=== PATIENT | male | born 1995 | race Caucasian/White ===

== ENCOUNTER 2017-05-02 10:10 | Emergency (ER) | payer BC ==
[~2017-05-02] VITALS: Ht 185.4 cm; Wt 72.7 kg
[2017-05-02 10:31] VITALS: BP 114/62; PULSE 78; TEMP 36.8; O2SAT 99; Ht 185.4 cm; Wt 72.7 kg
[2017-05-02] MEDS ORDERED: CEPH500C2 PO (11:07)
--- NOTE | 2017-05-02 17:09 | EMERGENCY ROOM VISIT NOTE ---
ED Visit Note First contact with patient: 10:36 CHIEF COMPLAINT: Painful mass on the right chin HISTORY OF PRESENT ILLNESS: This 21-year-old white male patient noticed a hard tender area on his right martínez 3 or 4 days ago. It was slowly getting larger, more painful and tender. No fever, chills, nausea, vomiting, or loss of appetite. He did see his PCP and was told there is nothing to drain. He was placed on Keflex. Since starting the Keflex, he states it has gotten smaller. He was using warm moist compresses on the area. Today it opened up and drained. He presents today for culture of the drainage. He has been on the antibiotics for a little over 24 hours. There was no injury to the area preceding the infection. Pain is 5/10. No prior history of similar episode. REVIEW OF SYSTEMS: REVIEW OF SYSTEM: HEENT: No dizziness, visual problems, hearing loss, or tinnitus. There is no difficulty swallowing and no oral lesions are present. PULMONARY: No cough, shortness of breath, sputum production or hemoptysis. CARDIOVASCULAR: No chest pain, palpitations, shortness of breath or peripheral edema. GASTROINTESTINAL: No diarrhea, constipation, nausea, vomiting, or abdominal pain. GENITOURINARY: No dysuria, frequency, urgency or nocturia. NEUROLOGIC: No weakness, muscle tenderness, epilepsy or history of neurological problems. MUSCULOSKELETAL: No history of joint tenderness/swelling. No history of arthritis or arthralgias. SKIN: No rashes. ENDOCRINE: No history of diabetes, thyroid disorders, or abnormal hair growth. PMH: Supplemental sheet was reviewed and signed. Previous surgeries: None Medical History: Benign Current medications: Keflex Allergies: NKDA Family history: Noncontributory Last tetanus: Within 10 years SOCIAL HISTORY: [employer] student. Single. No tobacco use. PHYSICAL EXAM: Vital Signs: Afebrile. Reviewed and filed in patient's chart. There is an indurated area on the tip of the right chin which measures about 1 cm in diameter. It is firm. It is tender to touch. He has an opening in the center that is currently draining mucopurulent fluid. Minimal additional fluid is expressible. There is a red zone of inflammation around it but no lymphangitis. It is not warm to touch. EMERGENCY DEPARTMENT COURSE: An aerobic culture was obtained. DIAGNOSIS: Skin Abscess of the right chin DISCHARGE INSTRUCTIONS & TREATMENT: Patient was educated regarding today's findings. Conservative care measures were discussed. Because he has are been on the antibiotic, the culture may not grow any bacteria. We will still attempt to get a Gram stain and culture. He may not hear results for 48-72 hours. Return if any problems such as fever or increasing pain develop. Warm moist compresses to the area several times per day to promote drainage. Keep the area covered. Cleanse daily with soap and water. Skin abscess handout was provided. Possibility of MRSA was discussed. Current/Historical Medications Scheduled Cephalexin Monohydrate (Keflex), 500 MG PO TID Allergies Coded Allergies: No Known Allergies (Unverified , 05/02/17) Vital Signs Date Time Temp Pulse Resp B/P (MAP) Pulse Ox O2 Delivery O2 Flow Rate FiO2 05/02/17 10:31 36.8 78 18 114/62 99 Room Air Departure Information Impression Primary Impression: Skin abscess Dispostion Home / Self-Care Condition FAIR Forms WORK / SCHOOL INSTRUCTIONS, HOME CARE DOCUMENTATION FORM, MOTRIN USE, IMPORTANT VISIT INFORMATION Patient Instructions [facility], ED Abscess Abx Tx Only Ch Additional Instructions Finish your Keflex prescription Ibuprofen every 6 hours as needed for discomfort Warm moist compresses to the area to promote drainage You will be called with culture results within 72 hours Return to the ED for any acute worsening of symptoms, or follow-up with your PCP
--- NOTE | 2017-05-04 11:53 | EDITING REQUIRED CODING QUERY ---
CODING QUERY Remberto LOPEZ, To promote full compliance with coding requirements relating to patient care, provider participation is requested in all cases of geography instructor uncertainty. Please assist us with the question(s) below: Coding Question(s): Chief complaint states right chin but History of Present Illness states right martínez. Please clarify abscess site below: It is right chin. [place] voice recognition dictation may have listed "martínez" Physician's Response(s): Thank you Jonatan Rudd Principal Diagnosis: "_that condition established after study, to be chiefly responsible for occasioning the admission of the patient to the hospital for care." Co-Existing Principal Diagnosis: "_when two or more diagnoses equally meet the criteria for principal diagnosis as determined by the circumstances of admission, diagnostic work up, and/or therapy provided, and the Alphabetic Index, Tabular List, or another coding guideline does not provide sequencing direction, any one of the diagnoses may be sequenced first." "When the physician has documented what appears to be a current diagnosis in the body of the record, but has not included the diagnosis in the final diagnostic statement, the physician should be asked whether the diagnosis should be added." (Source [facility]oding [facility] 2 QTR90. p3-4)
--- NOTE | 2017-05-04 16:07 | Pharmacy Progress Note ---
ED Pharmacist Culture FollowUp Date of Service: May 04, 2017. Called patient regarding MRSA abscess culture. Patient was discharged with keflex only, which she was advised to stop taking and start a course of doxycycline. Prescription for doxycycline 100mg BID X 7 days called to [facility] at the patient's request. Case discussed with Dr. Gaines, who is the prescribing provider. Patient also reported he was feeling better.
== END 2017-05-02 11:07 | disposition home or self-care (01) ==
LOC: C.EDB 10:14 → C.EDD 11:07
DX: L02.01 Cutaneous abscess of face (principal)